=== PATIENT | male | born 1950 | race Caucasian/White ===

== ENCOUNTER 2020-03-09 10:38 | Inpatient (IN) | payer MEDICARE, OTHER ==
[~2020-03-09] VITALS: Ht 170.2 cm; Wt 88.0 kg
[2020-03-09] MEDS ORDERED: ENAL10TA39 PO (10:59)
[2020-03-09] MEDS ORDERED: LATA2.5D2 OP (10:59)
[2020-03-09] MEDS ORDERED: ACET-868 PO (10:59)
--- NOTE | 2020-03-09 11:00 | NUR ---
BED 3 PT [facility] FROM [facility] C/O GENERAL WEAKNESS. VS CHECKED. AWAITING MD BERUMEN.
[2020-03-09 11:33] LABS: BASOPHILS # (AUTO) 0.1 /CMM (0.0-0.2); EOSINOPHILS % (AUTO) 2.1 % (0.0-6.0); HEMATOCRIT 47 % (39-51); HEMOGLOBIN 15.8 g/dL (13.5-17.5); LYMPHOCYTES # (AUTO) 1.2 /CMM (0.8-4.8); LYMPHOCYTES % (AUTO) 17.3 % (20.0-44.0); MEAN CORPUSCULAR HGB CONC 34 g/dl (31.0-36.0); MEAN CORPUSCULAR VOLUME 90 fL (80-96); MONOCYTES # (AUTO) 0.8 /CMM (0.1-1.30); NEUTROPHILS # (AUTO) 4.8 /CMM (1.8-8.9); NEUTROPHILS % (AUTO) 68.6 % (43.0-81.0); PLATELET COUNT (AUTO) 155 /CMM (150-450); RED BLOOD CELL COUNT(AUTO) 5.22 MIL/uL (4.5-6.0); WHITE BLOOD COUNT (AUTO) 6.9 K/uL (4.3-11.0)
[2020-03-09 11:38] LABS: APPEARANCE,URINE CLEAR (CLEAR); BILIRUBIN,URINE NEGATIVE (NEGATIVE); BLOOD, URINE NEGATIVE Ery/uL (NEGATIVE); COLOR,URINE YELLOW (YELLOW); KETONES,URINE NEGATIVE (NEGATIVE); LEUKOCYTE ESTERASE ,URINE NEGATIVE (NEGATIVE); NITRITE, URINE NEGATIVE (NEGATIVE); PH,URINE 6.5 (5.0-8.0); PROTEIN,URINE NEGATIVE (NEGATIVE); UGLUCOSE NEGATIVE (NEGATIVE); UROBILINOGEN,URINE 0.2 EU/dL (0.2)
[2020-03-09 12:04] LABS: SERUM AMMONIA 56 umol/L (11-32)
[2020-03-09 12:08] LABS: CARBON DIOXIDE 22 mmol/L (21-32); CHLORIDE 103 mmol/L (98-107); CREATININE 1.1 mg/dL (0.6-1.3); GLUCOSE 91 mg/dL (74-106); POTASSIUM 4.2 mmol/L (3.5-5.1); SODIUM SERUM 137 mmol/L (136-145); UREA NITROGEN, BLOOD 20 mg/dL (7-18)
[2020-03-09 12:14] LABS: ALANINE AMINOTRANSFERASE 19 U/L (12-78); ALBUMIN 3.6 g/dL (3.4-5.0); ALKALINE PHOSPHATASE 73 U/L (46-116); ASPARTATE AMINOTRANSFERASE 25 U/L (15-37); BILIRUBIN,DIRECT 0.1 mg/dL (0.0-0.2); BILIRUBIN,TOTAL 1.2 mg/dL (0.2-1.0); TOTAL PROTEIN, SERUM 7.3 g/dL (6.4-8.2)
[2020-03-09 12:18] LABS: THYROID STIMULATING HORMONE 2.351 uIU/mL (0.358-3.74)
--- NOTE | 2020-03-09 12:35 | NUR ---
PAGED [facility].
[2020-03-09] MEDS ORDERED: HYDROCODONE/APAP 5/325MG TABLET PO PRN (13:00)
[2020-03-09] MEDS ORDERED: ONDANSETRON HCL/PF 4 MG/2 ML VIAL IVP PRN (13:00)
[2020-03-09] MEDS ORDERED: MAGNESIUM HYDROXIDE 30 ML UDC PO PRN (13:00)
[2020-03-09] MEDS ORDERED: ACETAMINOPHEN 325 MG TABLET PO PRN (13:00)
[2020-03-09] MEDS ORDERED: MAG HYDROX/AL HYDROX/SIMETH 30 ML UDC PO PRN (13:00)
[2020-03-09] MEDS ORDERED: Z GUARD REMEDY 2 OZ OINT TP PRN (13:00)
--- NOTE | 2020-03-09 13:08 | NUR ---
CALLED NURSING SUP FOR M/S BED.
--- NOTE | 2020-03-09 13:40 | NUR ---
Ramonita dunn in [facility] - 03/09/20 at 1341 by KAVITA NURSING SUP GAVE [facility] BED 200-1.
--- NOTE | 2020-03-09 13:41 | NUR ---
Ramonita dunn in [facility] - 03/09/20 at 1342 by KAVITA NURSING SUP GAVE [facility] 209-1.
--- NOTE | 2020-03-09 13:42 | NUR ---
NURSING SUP GAVE M/S BED 209-1.
--- NOTE | 2020-03-09 14:24 | NUR ---
REPORT GIVEN TO TAMARA CASILLAS FOR PALOMA.
--- NOTE | 2020-03-09 14:50 | NUR ---
ADMIT NOTES RECEIVED PATIENT FROM ER VIA GURNEY. PATIENT VITALS ARE WITHIN NORMAL LIMIT. SO SIGNS OF DISTRESS IN ROOM AIR. ORIENTED PATIENT TO HIS ROOM. CALL LIGHT WITHIN REACH SAFETY MEASURES ARE APPLIED BED LOCKED AND LOW POSITION. SIDE RAILS UP X 2. CALL LIGHT WITHIN REACH WILL CONTINUE TO MONITOR.
[2020-03-09] MEDS: ENOXAPARIN SODIUM 30 MG/0.3 ML DISP.SYRIN SQ SCH (17:59)
[2020-03-09] MEDS: IV NS 0.9% 1,000 ML IV PRN (18:04)
[2020-03-09 18:55] VITALS: BP 139/89
--- NOTE | 2020-03-09 18:58 | NUR ---
MS RN CLOSED NOTE PATIENT IS A/O X 3-4 WITH NO SIGNS OF ACUTE DISTRESS IN ROOM AIR. NO SIGNS OF PAIN AT THIS MOMENT. IV L WRIST #18 G INTACT RUNNING NS AT 75 ML/HR. PATIENT KEPT CLEAN AND DRY. ALL NEEDS, CARE, TREATMENT AND MEDICATIONS ADMINISTERED ANTICIPATED PER ORDER. SAFETY MEASURES ARE APPLIED, BED IS LOW AND LOCKED POSITION. SIDE RAILS UP X 2 FOR SAFETY. CALL LIGHT WITHIN REACH. WILL ENDORSE TO THE NEXT RIVET HOLE MACHINE OPERATOR.
--- NOTE | 2020-03-09 19:30 | NUR ---
RN MS opening notes Pt is resting in bed comfortably. Pt is resting in bed comfortably. Pt is alert and orientedX1. Pt speaks Greenlandic and able to make needs known. Respiration is normal in room air. No SOB. No S/S of distress noted. Noted Pt has ankle bracelet on left ankle. IV sites at R wrist # 18 is clean, intact and infusing well NS@ 75 ml/hr. Safety precautions is maintained. Bed at low position, brakes locked, side rails upX3, HOB elevated, urinal at the bedside and call light is within reach. Will continue to monitor.
[2020-03-09 20:00] VITALS: BP 115/77
[2020-03-09] MEDS: LATANOPROST EYE DROP 0.005% 2.5 ML BOTTLE EACHEYE SCH (21:24)
--- NOTE | 2020-03-10 01:59 | NUR ---
RN MS notes Informed MD and leave a message regarding Pt's ammonia level on march 09 was 56. Awaiting MD to call back.
[2020-03-10] MEDS: IV NS 0.9% 1,000 ML IV PRN (05:44)
--- NOTE | 2020-03-10 06:45 | NUR ---
RN MS opening notes Pt is resting in bed comfortably. Pt is alert and orientedX1-2. Respiration is normal in room air. No SOB. No S/S of distress noted. IV sites at R wrist # 18 is clean, intact and infusing well NS@ 75 ml/hr. VS is stable. Afebrile. Routine meds were given as ordered. Kept Pt clean, dry and comfortable. Safety precautions is maintained. Bed at low position, brakes locked, side rails upX3, HOB elevated, and call light is within reach. Will endorse to morning nurse for PALOMA.
[2020-03-10 07:00] LABS: BASOPHILS # (AUTO) 0.1 /CMM (0.0-0.2); BASOPHILS % (AUTO) 0.9 % (0.0-2.0); EOSINOPHILS % (AUTO) 1.8 % (0.0-6.0); HEMATOCRIT 46 % (39-51); HEMOGLOBIN 15.3 g/dL (13.5-17.5); LYMPHOCYTES # (AUTO) 1.4 /CMM (0.8-4.8); LYMPHOCYTES % (AUTO) 20.4 % (20.0-44.0); MEAN CORPUSCULAR HGB CONC 33 g/dl (31.0-36.0); MEAN CORPUSCULAR VOLUME 91 fL (80-96); MONOCYTES # (AUTO) 0.9 /CMM (0.1-1.30); MONOCYTES % (AUTO) 12.8 % (2.0-12.0); NEUTROPHILS # (AUTO) 4.4 /CMM (1.8-8.9); NEUTROPHILS % (AUTO) 64.1 % (43.0-81.0); PLATELET COUNT (AUTO) 208 /CMM (150-450); RED BLOOD CELL COUNT(AUTO) 5.06 MIL/uL (4.5-6.0); WHITE BLOOD COUNT (AUTO) 6.8 K/uL (4.3-11.0)
[2020-03-10 07:15] LABS: CALCIUM, SERUM 8.3 mg/dL (8.5-10.1); CREATININE 1.2 mg/dL (0.6-1.3); POTASSIUM 3.9 mmol/L (3.5-5.1)
[2020-03-10 07:21] LABS: BILIRUBIN,DIRECT 0.2 mg/dL (0.0-0.2); BILIRUBIN,TOTAL 1.4 mg/dL (0.2-1.0); MAGNESIUM 2.2 mg/dL (1.8-2.4); PHOSPHORUS 3.3 mg/dL (2.5-4.9); TOTAL PROTEIN, SERUM 6.3 g/dL (6.4-8.2)
[2020-03-10 08:00] VITALS: BP 122/77
[2020-03-10] MEDS: ENALAPRIL MALEATE (10 MG) 10 MG TABLET PO SCH (08:58)
[2020-03-10] MEDS ORDERED: ENALAPRIL MALEATE (5 MG) 5 MG TABLET PO SCH (09:00)
[2020-03-10] MEDS: ENOXAPARIN SODIUM 30 MG/0.3 ML DISP.SYRIN SQ SCH (09:00)
--- NOTE | 2020-03-10 18:48 | NUR ---
MS RN NOTE PATIENT RECEIVED FROM MED SURG 2. VITAL SIGNS TAKEN. PATIENT ALERT AND ORIENTED X 1-2, BURKINAN SPEAKING. NO SOB O2 SAT 94% IN ROOM AIR. WITH LEFT ANKLE BRACELET. RIGHT WRIST #18. IV NS @ 75ML/HR. INTACT AND PATENT. FLUSHING WELL. ORIENTED TO HOSPITAL. BED LOCKED AND IN LOWEST POSITION. WILL CONTINUE TO MONITOR.
[2020-03-10 19:13] VITALS: BP 121/81
--- NOTE | 2020-03-10 19:19 | NUR ---
MS RN OPENING NOTES PATIENT AWAKE IN BED. A/OX1-2; PRIMARY LANGUAGE SWAZI. ON RA; NO S/S OF ACUTE RESPIRATORY DISTRESS; BREATHING IS EVEN AND UNLABORED. NO C/O PAIN AT THIS TIME. IV PRESENT ON RIGHT WRIST, SIZE 18, INTACT & PATENT WITH NS RUNNING AT 75ML/HR. SAFETY MEASURES IN PLACE AND PATIENT'S NEEDS MET. BED LOCKED, ALARM ON, SIDE RAILS X3, CALL LIGHT WITHIN REACH. WILL CONTINUE TO MONITOR.
[2020-03-10 20:00] VITALS: BP 150/89
[2020-03-10 20:37] VITALS: BP 150/89
[2020-03-10] MEDS: LATANOPROST EYE DROP 0.005% 2.5 ML BOTTLE EACHEYE SCH (21:13)
[2020-03-11 07:11] LABS: BASOPHILS # (AUTO) 0.1 /CMM (0.0-0.2); BASOPHILS % (AUTO) 0.7 % (0.0-2.0); EOSINOPHILS % (AUTO) 1.2 % (0.0-6.0); HEMATOCRIT 48 % (39-51); HEMOGLOBIN 15.9 g/dL (13.5-17.5); LYMPHOCYTES # (AUTO) 1.1 /CMM (0.8-4.8); MEAN CORPUSCULAR HGB CONC 33 g/dl (31.0-36.0); MEAN CORPUSCULAR VOLUME 91 fL (80-96); MONOCYTES # (AUTO) 0.9 /CMM (0.1-1.30); NEUTROPHILS % (AUTO) 73.1 % (43.0-81.0); PLATELET COUNT (AUTO) 192 /CMM (150-450); RED BLOOD CELL COUNT(AUTO) 5.28 MIL/uL (4.5-6.0); WHITE BLOOD COUNT (AUTO) 8.2 K/uL (4.3-11.0)
--- NOTE | 2020-03-11 07:20 | NUR ---
MS RN CLOSING NOTES PATIENT AWAKE IN BED. A/OX2. ON RA; NO S/S OF ACUTE RESPIRATORY DISTRESS; BREATHING IS EVEN AND UNLABORED. NO C/O PAIN AT THIS TIME. IV PRESENT ON RIGHT WRIST, SIZE 18, INTACT & PATENT WITH NS RUNNING AT 75ML/HR. SAFETY MEASURES IN PLACE AND PATIENT'S NEEDS MET. BED LOCKED, ALARM ON, SIDE RAILS X3, CALL LIGHT WITHIN REACH. ENDORSED TO DAY SHIFT RN PLAN OF CARE.
--- NOTE | 2020-03-11 07:22 | NUR ---
MS/RN OPENING NOTE PATIENT RECEIVED FROM ASSEMBLY MACHINE SET UP MECHANIC. PATIENT IN STABLE CONDITION. LAYING IN BED, NO ACUTE DISTRESS NOTED. SAFETY PRECAUTION IN PLACE. PATIENT BED IS LOCKED IN LOWEST POSITION. CALL LIGHT WITHIN REACH WILL CONTINUE TO MONITOR AND ENSURE SAFETY.
[2020-03-11 07:33] LABS: CALCIUM, SERUM 8.6 mg/dL (8.5-10.1); POTASSIUM 3.8 mmol/L (3.5-5.1)
[2020-03-11 08:00] VITALS: BP 113/72
[2020-03-11] MEDS: ENOXAPARIN SODIUM 30 MG/0.3 ML DISP.SYRIN SQ SCH (08:22)
[2020-03-11] MEDS: ENALAPRIL MALEATE (10 MG) 10 MG TABLET PO SCH (08:28)
--- NOTE | 2020-03-11 10:20 | NUR ---
WOUND CARE CONSULT: PT PRESENTS WITH INTACT SKIN AND HEALED AREA TO LEFT KNEE, PRESENT ON ADMISSION. RECOMMENDATIONS MADE FOR SKIN PROTECTION. DISCUSSED WITH NURSING STAFF. WILL SEE PRBryan GRIMALDO IN AGREEMENT WITH PLAN OF CARE. PT IS ON ISOFLEX LOW AIRLOSS BED.
[2020-03-11] MEDS: IV NS 0.9% 1,000 ML IV PRN (10:30)
[2020-03-11] MEDS: LACTULOSE 10 G/15 ML UDC (PYXIS) PO SCH (11:00)
[2020-03-11 16:00] VITALS: BP 138/94
--- NOTE | 2020-03-11 18:46 | NUR ---
MS/RN CLOSING NOTE PATIENT A/O X2 ECUADOREAN SPEAKING AWAKE AT THIS TIME. VS SIGNS WITHIN NORMAL RANGE. LAYING IN BED ON ROOM AIR. NO ACUTE DISTRESS NOTED. IV ACCESS R WRIST INTACT AND PATENT. ALL PATIENT NEED AND CARE PROVIDED. SAFETY PRECAUTION IN PLACE. PATIENT BED IS LOCKED IN LOWEST POSITION. CALL LIGHT WITHIN REACH WILL CONTINUE TO MONITOR AND ENSURE SAFETY. WILL ENDORSE TO LEATHER BELT MAKER.
--- NOTE | 2020-03-11 18:57 | NUR ---
RN NOTES TRANSFER CONTROLLER HALLEY ( TEL 3#[phone]) BROUGHT PT'S GPS ANKLE MONITORING DEVICE CHARGE AND NOTICE AND CONDITION OF PAROLE PAPERS FOR PT TO READ AND SIGN. WILL ENDORSE TO SPRUE CUTTING PRESS OPERATOR NURSE.
[2020-03-11 20:00] VITALS: BP 135/91
--- NOTE | 2020-03-11 20:11 | NUR ---
MS/RN OPENING NOTE Patient awake in bed, A/O x2, hong konger speaking only, bed bound. Breathing even, unlabored, on room air. No acute distress or SOB noted. Tongue midline, no tracheal deviation. CRP <3seconds. Pedal pulses 2+. Skin is warm pink, dry, appropriate for ethnicity. L knee abrasion noted. IV site right wrist 18g NS @ 75 ml/hr, no redness or infiltration. Abdomen round, soft, non-tender. BS hypoactive. Patient is incontinent. Bed in low position, wheels locked, side rails up x2, call light within reach.
[2020-03-11] MEDS: LATANOPROST EYE DROP 0.005% 2.5 ML BOTTLE EACHEYE SCH (22:13)
[2020-03-11 23:40] VITALS: BP 135/91
[2020-03-12] MEDS: IV NS 0.9% 1,000 ML IV PRN (04:16)
--- NOTE | 2020-03-12 06:09 | NUR ---
MS/RN CLOSING NOTE Patient awake in bed, A/O x2, martiniquais speaking only, bed bound. Breathing even, unlabored, on room air. No acute distress or SOB noted. L knee abrasion noted. IV site right wrist 18g NS @ 75 ml/hr, no redness or infiltration. Abdomen round, soft, non-tender. Patient is incontinent, patient void 4x clear yellow urine. Bed in low position, wheels locked, side rails up x2, call light within reach.
--- NOTE | 2020-03-12 08:10 | NUR ---
RN OPENING NOTE Patient is resting in bed, A/O x2-3, showing no signs of acute distress or SOB, stable on RA. IV line in the right wrist #18g is clean and intact flushing well. Patient denies pain at this time. Ankle bracelet present on the right ankle. Bed is in lowest position, side rails x3 in upright position, call light is within reach, fall safety and aspiration precautions enforced. Will continue with plan of care.
[2020-03-12] MEDS: LACTULOSE 10 G/15 ML UDC (PYXIS) PO SCH (09:12)
[2020-03-12 09:14] VITALS: BP 126/85
[2020-03-12] MEDS: ENALAPRIL MALEATE (10 MG) 10 MG TABLET PO SCH (09:14)
[2020-03-12] MEDS: ENOXAPARIN SODIUM 30 MG/0.3 ML DISP.SYRIN SQ SCH (09:14)
--- NOTE | 2020-03-12 09:59 | NUR ---
Industrial Gas Servicer Supervisor contacted Anabel Viera patient's forest fire control officer per request of tread cutter Diane. SW contacted patient's forest fire control officer Rene notifying Rene that the patient will likely discharge today. ISABEL wanted to inform Rene of discharge plan to [facility] [phone] [id number] [place] [address]. Rene informed this SW that patient is a long-term resident at [facility] and will follow-up with patient after discharge. Rene informed this SW that patient does not speak Pashto very well and will need assistance to understand discharge information prior to departure. ISABEL understood and informed Rene that [facility] will use baccarat manager for patient to provide him with discharge instructions. Rene in agreement and thanked this SW for providing discharge call. SW to remain available for all needs regarding this patient.
--- NOTE | 2020-03-12 14:52 | NUR ---
PACKING AND FINAL ASSEMBLY SUPERVISOR NOTE Patient is medically cleared for discharge. A/O x2-3, showing no signs of acute distress or SOB, stable on RA. Eusebia was able to ambulate with walker to bathroom. Ankle bracelet present with cupola charger insulation. Patient signed parole paperwork, radiation officer aware per charge auditor. DC instructions provided and patient verbalized understanding. All belongings are with the EMS. All patient needs met, all due medications given. Patient kept clean and dry throughout shift. Patient picked up by EMS en route to [facility]--report given to LESLY MCDONALD.
== END 2020-03-12 14:45 | DRG 441 ==
LOC: ER 11:05 → MEDSG2 13:55 → MED 03-10 14:55 → MEDSG2 03-10 15:08 → MED 03-10 18:03
PROVIDERS: ADMIT Internal Medicine; ATTEND Internal Medicine
DX: K72.90 Hepatic failure, unspecified without coma (principal); N17.0 Acute kidney failure with tubular necrosis; E43 Unspecified severe protein-calorie malnutrition; E72.4 Disorders of ornithine metabolism; R13.10 Dysphagia, unspecified; I10 Essential (primary) hypertension; Z86.73 Personal history of transient ischemic attack (TIA), and cerebral infarction without residual deficits; E86.0 Dehydration; R53.1 Weakness; R63.4 Abnormal weight loss; E88.09 Other disorders of plasma-protein metabolism, not elsewhere classified
CPT/HCPCS: 36415; 70450-TC; 71045-TC; 80048-TC; 80076-TC; 81000-TC; 82140-TC; 83735-TC; 84100-TC; 84443-TC; 84484-TC; 85025-TC; 85730-TC; 87081-TC; 97116-TC; 97530-TC; G0378; J1650; J7030; U0003